=== PATIENT | male | born 1990 | race Caucasian/White ===

== ENCOUNTER 2016-12-26 12:30 | Outpatient (CLI) | payer BC ==
--- NOTE | 2016-12-26 15:40 | ULT ---
THYROID ULTRASOUND: 12/26/16 INDICATION: Elevated antibody titer. FINDINGS: The right thyroid lobe measures 4.5 x 1.5 x 1.6 cm. The left thyroid lobe measures 4.5 x 1.5 x 1.6 c m. the left thyroid lobe measures 4.5 x 1.4 x 1.1 cm. Thyroid isthmus measures 0.2 cm. IMPRESSION: No focal thyroid lesion identified. Thyroid gland sonographically has a normal appearance. POS: LEOP[facility]DO
== END 2016-12-26 12:31 | disposition home or self-care (01) ==
LOC: ULT 12:30
PROVIDERS: ATTEND Nurse Practitioner Family
DX: R76.0 Raised antibody titer (principal)
CPT/HCPCS: 76536